=== PATIENT | male | born 1985 | race Caucasian/White ===

== ENCOUNTER 2023-03-21 15:00 | Outpatient (RCR) | payer OTHER, SELFPAY ==
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
--- NOTE | 2023-03-21 15:51 | HP.PTDCSUM_ITS ---
Discharge Summary D/C summary: It has been my pleasure to treat NANCIE ROTH referred by Dr. Wendy Crump DO, with the diagnosis of Low Back Pain- Muscle Spasms for a total of 9 visit(s). Discharge Date: Please see the following information for a summary of their discharge status. Subjective Subjective: Patient reports that he is doing better- he feels that he is 75% back to normal. The last flare up was playing with his kids in the front yard- bending forwards playing with his kids in the front yard- no spasm- just felt fatigue- able to manage- stopped bending forwards and he was better the next day- did end of laying on his stomach and that did help. He has been doing his exercises at home. Pain Bilateral Back: Pain Intensity (Out of 10): 0 Overall Improvement % Improvement: 75 Objective Objective/Function: Posture: good throughout treatment session Observation: comfortable in a sitting position today Gait: no deviation noted HR/TR: able SLS: 30 sec without loss of balance Sensation: WNL to gross touch bilateral LE Reflex: WFL to patella ROM: WFL Strength: Core: good Hip: 5/5 throughout , Knee: 5/5, Ankle: 5/5. Palpation: tender along spinous process of the lumbar spine with PA glides Flex: HS: mod, Gastroc: mod Special Test: Extension: decreases pain Special Tests L/S Slump test left side: Negative L/S Slump test right side: Negative L/S Left Straight Leg Raise: Negative L/S Right Straight Leg Raise: Negative Goals Goal 1:: Patient will be I with HEP and progression Goal Progress: Goal Met Goal 2:: Patient will maintain proper posture t/o tx session to demo increased core s/s Goal Progress: Goal Met Goal 3:: Patient will report no lumbar spasms for 1 week Goal Progress: Goal Met Goal 4:: Patient will report 80% improvement Goal Progress: Progressing Plan Plan: 03/21/23: Discharge to I HEP- return to MD for further evaluation as needed Extension Bias- increase core s/s- through appropriate HEP- decrease lumbar s/s HEP Given IE: ergonomic education- postural education D/C Information d/c sentence: If there are questions or concerns regarding this patient's physical therapy, please feel free to call me at [phone]. Thank you for the referral of this patient. Sincerely, Ayaka Ho, DPT Balance/Gait/Functional tests Balance/Special Test Scores Oswestry Low Back Score: 8 Improvement % Improvement: 75
== END 2023-03-21 19:00 | disposition home or self-care (01) ==
LOC: PT 15:00
PROVIDERS: PCP Internal Medicine; Referring Provider Internal Medicine; Visit Provider Internal Medicine
DX: M54.50 Low back pain, unspecified (principal); M62.830 Muscle spasm of back
CPT/HCPCS: 97110; 97162; 97164; 97530

== ENCOUNTER → 2024-08-27 | Outpatient (CLI) | payer BC, SELFPAY ==
--- NOTE | 2024-08-27 16:10 | MASS_PTH ---
PATIENT: NANCIE ROTH LOC: [facility] U#:[id number] AGE/SX: 38/M ROOM: RE08/27/[address]: Dr. Humphrey Kwok MD : 1985 BED: DIS: 08/27/2024 SPEC #: [id number] RECD: 08/28/24 09:30 STATUS: IMTIAZ REDalia #: [id number] RUPALI: 08/27/24 16:[address]: Humphrey Kwok DEPT: SURGICAL PATHOLOGY RECD BY: Rafa Wolff ENTERED: 08/28/24 09:31 SP TYPE: Mass OTHR DR: Dr. Wendy Crump, DO Tissues: Nose, NOS Procedures: Surgery Specimen Level IV HEADER OPERATION: Permanent pathology PRE-OP DIAGNOSIS: Right nasal mass TISSUE SUBMITTED: Right nostril MICROSCOPIC DIAGNOSIS Right nostril, nasal mass, biopsy: * Pyogenic granuloma - see comment. COMMENT Selected slides/images were reviewed in intradepartmental consultation by Dr Danielle Rueda ([facility] head & neck pathology division). MICROSCOPIC DESCRIPTION Slides are reviewed. GROSS DESCRIPTION Received in formalin labeledVinod Mitchell, and is not designated, is a 0.7 x 0.3 x 0.2 cm red-gee, slightly nodular, ovoid, soft tissue fragment. One possible marginal edge of the specimen is inked black. The specimen is submitted intact in one cassette.JK. 08/28/2024 CPT:74441
== END | disposition home or self-care (01) ==
PROVIDERS: PCP Internal Medicine; Referring Provider Otolaryngology Otolaryngology/Facial Plastic Surgery; Visit Provider Otolaryngology Otolaryngology/Facial Plastic Surgery
DX: L98.0 Pyogenic granuloma (principal)
CPT/HCPCS: 88305

== ENCOUNTER → 2024-09-23 | Outpatient (CLI) | payer BC, SELFPAY ==
--- NOTE | 2024-09-23 15:48 | CT_ITS ---
PROCEDURE: SINUS/FACIAL BONE REASON FOR EXAM: CHRONIC SINUSITIS TECHNIQUE: CT of the paranasal sinuses without contrast. Coronal and Sagittal reconstruction series were provided. One or more dose reduction techniques were used (e.g., Automated exposure control, adjustment of the mA and/or kV according to patient size, use of iterative reconstruction technique). COMPARISON: None. FINDINGS: Mild mucoperiosteal thickening mostly inferior bilateral maxillary sinuses with soft tissue opacification of right more than left maxillary ostium. Mild mucoperiosteal thickening left sphenoid sinus with focal soft tissue opacification of the right and left sphenoethmoidal recess. Mild right frontal sinus mucoperiosteal thickening and focal soft tissue opacification frontoethmoid recess. Right more than left ethmoid air cell mucosal thickening and areas of opacification. No air-fluid levels identified. The turbinates appear within limits. Infratemporal fossa fat appears preserved. Pterygopalatine foramen appear within limits. No sinus wall sclerosis or thickening. The medial and inferior orbital floors appear intact. The orbits appear within limits without retro bulbar stranding. Bilateral fossa of Rosenmuller appear symmetric. The mastoids appear clear. The middle and inner ears appear within limits. Internal auditory canals appear within limits. Left more than right likely cerumen partially filling the external auditory canals. TMJs appear normally located. No dental periapical lucencies. The parotid and partially imaged submandibular glands appear within limits. No adenopathy identified. 1 cm low-density ovoid lesion beneath the skin surface of the left earlobe for example coronal 100 and sagittal 139 may represent sebaceous cyst, nonspecific, clinically correlate. CT/Sinus/Facial Bone IMPRESSION: Paranasal sinus disease as above without air-fluid levels. 1 cm low-density ovoid lesion beneath the skin surface of the left earlobe for example coronal 100 and sagittal 139 may represent sebaceous cyst, nonspecific, clinically correlate. Reading Location: [id number]
== END | disposition home or self-care (01) ==
LOC: CT 15:47
PROVIDERS: PCP Internal Medicine; Referring Provider Otolaryngology Otolaryngology/Facial Plastic Surgery; Visit Provider Otolaryngology Otolaryngology/Facial Plastic Surgery
DX: J32.8 Other chronic sinusitis (principal); J33.9 Nasal polyp, unspecified
CPT/HCPCS: 70486

== ENCOUNTER → 2025-04-19 | Outpatient (CLI) | payer BC, SELFPAY ==
--- NOTE | 2025-04-19 11:10 | NASAL_PTH ---
PATIENT: NANCIE ROTH LOC: [facility] U#:[id number] AGE/SX: 39/M ROOM: RE04/19/[address]: Dr. Magdaleno Kwok MD : 1985 BED: DIS: 04/19/2025 SPEC #: [id number] RECD: 04/19/25 15:06 STATUS: IMTIAZ REDalia #: [id number] RUPALI: 04/19/25 11:[address]: Magdaleno Kwok DEPT: SURGICAL PATHOLOGY RECD BY: Rafa Wolff ENTERED: 04/20/25 08:59 SP TYPE: NASAL SPEC OTHR DR: Dr. Wendy Crump DO Tissues: A - Ethmoid sinus, NOS B - Ethmoid sinus, NOS C - Nose, NOS Procedures: Decalcification bone/plaque Surgery Specimen Level III HEADER OPERATION: Functional endoscopic sinus surgery PRE-OP DIAGNOSIS: Chronic pansinusitis, nasal polyp, unspecified TISSUE SUBMITTED: A- Left sinus contents, B- Right sinus contents, C- Right lateral nasal wall MICROSCOPIC DIAGNOSIS A. Left sinus contents, functional endoscopic sinus surgery: - Fragments of sinonasal mucosa and bone with chronic inflammation and reactive changes. B. Right sinus contents, functional endoscopic sinus surgery: - Fragments of sinonasal mucosa and bone with chronic inflammation and reactive changes. C. Right lateral nose wall, biopsy: - Polypoid sinonasal mucosa with chronic inflammation. MICROSCOPIC DESCRIPTION Slides are reviewed. GROSS DESCRIPTION Received in 3 formalin containers labeled with the patient's name and date of . Designated as: A. Left sinus contents is a 5.2 x 2.8 x 0.4 cm aggregate of gee-red tissue fragments clotted blood and flecks of apparent bone. Admitting Officer sections are submitted in 2 cassette, following decalcification. B. Right sinus contents is a 4.0 x 2.4 x 0.2 cm aggregate of gee-red tissue fragments, clotted blood and flecks of apparent bone. Entirely submitted in 2 cassettes, following decalcification of cassette B1. C. Right lateral nasal wall is a 0.8 x 0.3 x 0.2 cm aggregate of gee-pink tissue fragments. Entirely submitted in 1 cassette. [place] 04/20/2025 CPT:26631t9,89633h1
== END | disposition home or self-care (01) ==
LOC: LABSPEC 15:29
PROVIDERS: PCP Internal Medicine; Referring Provider Otolaryngology; Visit Provider Otolaryngology
DX: J32.4 Chronic pansinusitis (principal); J33.9 Nasal polyp, unspecified
CPT/HCPCS: 88304; 88311

== ENCOUNTER → 2025-04-28 | Outpatient (CLI) | payer BC, SELFPAY ==
[2025-04-28 10:59] LABS: Cholesterol 234 mg/dL (<=200); Low Density Lipoprotein Calc. 161 mg/dL; Triglycerides 115 mg/dL; Very Low Density Lipoprotein 23 mg/dL (5-40); cholesterol:hdl ratio screen 4.45
== END | disposition home or self-care (01) ==
LOC: CIMLAB 08:28
PROVIDERS: PCP Internal Medicine; Referring Provider Internal Medicine; Visit Provider Internal Medicine
DX: Z00.00 Encounter for general adult medical examination without abnormal findings (principal)
CPT/HCPCS: 36415; 80061; 83036